=== PATIENT | male | born 1960 | race Caucasian/White ===

== ENCOUNTER → 2017-01-27 | Outpatient (CLI) | payer OTHER ==
[~2017-01-27] MED LIST: ALEVE220 M1 PO; ANDROGEL5 GM TD; ASPIRIN81 M1 PO; ASPIRIN81 MG PO; CO Q-10200 MG PO; FAMVIR500 MG PO; FISH OIL 1,01 CAP.EC PO; FISH OIL300 MG PO; LISINOPRIL10 MG PO; LISINOPRIL20 MG PO; MOTRIN400 MG PO; MULTI VITAMIN1 EACH PO; MULTI-DAY VITAM1 TAB PO; PANTOPRAZOLE SO20 MG PO; PREDNISONE PO; VITAL-D RX TABL1 TAB PO; VITAMIN D31000 UNI1 PO; ZESTRIL10 M1 PO; ZOCOR PO
--- NOTE | ~2017-01-27 | CR7 ---
[facility] A Service of [facility] / [facility] RADIOLOGY TEXT RESULTS PATIENT: CONCEPCIÓN LOPEZ LOCATION: [facility] : 60 UNIT #: [id number] AGE: [address]: Jamir Pereyra MD SEX: M ORDER DR: [id number] [facility] [address] [place], [place] [address] [id number] O MR#: [id number] Acc #: [id number] NAME: CONCEPCIÓN LOPEZ : 1960 SEX: M STUDY DATE/TIME: 01/27/2017 10:12 UNIT: [facility] ROOM: STUDY DESCRIPTION: CR Abdomen Single AP View Attending Physician: Jamir Pereyra M.D. Referring Physician: Jamir Pereyra M.D. Ordering Physician: Jamir Pereyra M.D. Primary Care Physician: Sindy Cheney M.D. MEDICAL IMAGING REPORT This report is preliminary unless electronic signature is present EXAM AP abdomen. DATE 01/27/2017 HISTORY 56-year-old male with left kidney stone, lithotripsy procedure 1 week ago. Left flank pain. Patient states symptoms have been present for many years. COMPARISON CT abdomen and pelvis with contrast 02/15/2012. There is no more recent abdominal imaging study at this institution for comparison. FINDINGS No definite ureteral stone is identified. Mild colonic stool burden is present which partially obscures the renal silhouettes. Mild left side L4-5 facet arthropathy is thought to be present. Nonspecific but nonobstructing bowel gas pattern. IMPRESSION No urinary tract stone is seen on today's examination. Nonspecific but nonobstructive bowel gas pattern. Dictated by... Deneen Dawson M.D. THIS IS AN ELECTRONICALLY VERIFIED REPORT Deneen Dawson M.D. at 01/30/2017 8:[address] [facility]/soraida [facility] A Service of [facility] / [facility] RADIOLOGY TEXT RESULTS PATIENT: CONCEPCIÓN LOPEZ [id number] : [birth year] UNIT #: [id number] AGE: [address]: Jamir Pereyra MD SEX: M ORDER DR: TD: 01/27/2017 14:55 JOB #: [id number] MEDICAL IMAGING REPORT Page 1 of 1 COPY
== END | disposition home or self-care (01) ==
LOC: CRAD 09:55
DX: N20.0 Calculus of kidney (principal); Z98.890 Other specified postprocedural states
CPT/HCPCS: 74000

== ENCOUNTER → 2017-04-04 | Day surgery (SDC) | payer OTHER ==
--- NOTE | ~2017-04-04 | OR ---
Unit #: [id number] #: [id number] Patient: CONCEPCIÓN LOPEZ [id number] [address] [address] [id number] O MR#: [id number] NAME: CONCEPCIÓN LOPEZ ROOM: Date of Procedure: 04/04/2017 Admission Date: 04/04/2017 Surgeon: Luke Molina M.D. : 1960 Attending Physician: Luke Molina M.D. Referring Physician: Luke Molina M.D. Primary Care Physician: Sindy Cheney M.D. OPERATIVE REPORT PROCEDURE PERFORMED Colonoscopy to cecum. INDICATIONS FOR PROCEDURE The patient with history of polyp with high-grade dysplasia, undergoing colonoscopy for surveillance. MEDICATIONS Monitored anesthesia. POSTOPERATIVE FINDINGS 1. Colonoscopy completed to cecum. Good prep. 2. No polyps, masses, or colitis. 3. Prominent rectal varices. DESCRIPTION OF PROCEDURE The patient was explained of the procedure, risks, and benefits along with risks and benefits of anesthesia. He was brought to the endoscopy room. Propofol anesthesia was given. Rectal exam was done, which was normal. Colonoscope was lubricated, passed up the rectum, advanced under direct vision all the way to the cecum. Cecum was identified by ileocecal valve and appendiceal orifice. I then started to pull the scope out carefully looking. No polyps, masses, or colitis. Prominent rectal varices were noticed. Gently, the scope was pulled out. He tolerated it well. Dictated by... López Del Angel/luis TD: 04/04/2017 19:00 JOB #: [id number] CC: Sindy Cheney M.D. Unit #: [id number] #: [id number] Patient: CONCEPCIÓN LOPEZ OPERATIVE REPORT Page 1 of 1 X Luke Molina MD PROCEDURE OPERATIVE NOTE
== END | disposition home or self-care (01) ==
LOC: COPS 12:30
DX: Z12.11 Encounter for screening for malignant neoplasm of colon (principal); I10 Essential (primary) hypertension; K21.9 Gastro-esophageal reflux disease without esophagitis; M19.90 Unspecified osteoarthritis, unspecified site; Z87.442 Personal history of urinary calculi; Z86.010 Personal history of colon polyps; Z98.890 Other specified postprocedural states; Z79.82 Long term (current) use of aspirin; Z79.899 Other long term (current) drug therapy